=== PATIENT | female | born 1995 | race African-American/Black ===

== ENCOUNTER 2024-07-04 11:07 | Emergency (ER) | payer OTHER, SELFPAY ==
[2024-07-04 11:56] LABS: Absolute Eosinophils 0.3 K/uL (0-0.5); Absolute Lymphocytes (CBC) 1.7 K/uL (0.7-4.9); Absolute Monocytes 0.3 K/uL (0.1-1.3); Basophils % 0.9 % (0-1.3); Eosinophils % 6.3 % (0-4.4); Hemoglobin 14.9 g/dL (12.0-15.0); MCH 32.1 pg (27.0-35.0); MCHC 34.6 g/dL (32.0-36.0); MCV 92.8 fL (80-100); MPV 7.4 fL (7.6-11.3); Neutrophils % 45.8 % (41.7-73.7); Nucleated Red Blood Cells % 0.1 % (0-0); Platelets 264 thou/uL (152-406); RBC Red Blood Cell Count 4.63 M/uL (3.86-4.86); Red Cell Distribution Width 12.7 % (12.1-15.2)
[2024-07-04 11:57] LABS: Specific Gravity 1.017 (1.005-1.030)
[2024-07-04 11:58] LABS: Specific Gravity 1.017 (1.005-1.030); Transitional Epithelial <5 /HPF (None Seen); Urine Bacteria None Seen /HPF (<20); Urine Bilirubin NEGATIVE (Negative); Urine Blood Negative (Negative); Urine Clarity Extremely Turbid (Clear); Urine Color Light-Yellow (Yellow); Urine Culture Reflex Order NOT NEEDED; Urine Glucose NEGATIVE (Negative); Urine Ketones NEGATIVE (Negative); Urine Microscopic Reflex YN ORDER UMIC; Urine Mucus Slight /HPF (None Seen); Urine Nitrite NEGATIVE (Negative); Urine Protein NEGATIVE (Negative); Urine RBC <5 /HPF (None Seen); Urine Urobilinogen Normal (Normal); Urine WBC <5 /HPF (<5); Urine pH 6.5 (5.0-7.0)
[2024-07-04 12:12] LABS: Albumin 3.6 g/dL (3.4-5.0); Alkaline Phosphatase 46 U/L (45-117); Anion Gap 7.9 mEq/L (5.0-15.0); BUN Blood Urea Nitrogen 7 mg/dL (7-18); Bicarbonate 25 mEq/L (21-32); Bilirubin Total 0.6 mg/dL (0.2-1.0); Globulin 3.7 g/dL (2.3-3.5); Glomerular Filtration Rate 77 ml/min (=/>90); Glucose Level 89 mg/dL (74-106); Lipase 25 U/L (13-75); Potassium 3.9 mEq/L (3.5-5.1); Protein, Total 7.3 g/dL (6.4-8.2); Sodium Level 138 mEq/L (136-145)
[2024-07-04 12:13] LABS: ALT/SGPT < 14 U/L (13-56); AST/SGOT < 10 U/L (15-37)
--- NOTE | 2024-07-04 12:45 | RAD REPORT ---
EXAMINATION: CT ABDOMEN AND PELVIS WITH CONTRAST CLINICAL INDICATION: Abd pain;Nausea / vomiting TECHNIQUE: CT abdomen and pelvis was performed, after the administration of IV contrast, as per [facility] protocol. Axial, sagittal and coronal reconstructions were obtained. One or more of the following dose reduction techniques were used: Automated exposure control, adjustment of the mA and k V according to patient size, and iterative reconstruction. Unless otherwise specified, incidental findings do not require dedicated imaging follow-up. COMPARISON: No prior exam. FINDINGS: LOWER CHEST: The visualized lung bases are clear. LIVER: Normal in size and contour. No focal lesion. Grossly unremarkable gallbladder. SPLEEN: Normal size. No focal lesion. PANCREAS: No mass, ductal dilation, or ambrose-pancreatic fluid. ADRENALS: Normal; no mass. KIDNEYS: Normal size and contour. No hydronephrosis. GASTROINTESTINAL TRACT: No evidence of free air, significant intra-abdominal free fluid, bowel obstru ction or abscess. APPENDIX: Normal appendix. LYMPH NODES: No lymphadenopathy. MUSCULOSKELETAL: No acute or suspicious osseous abnormality. ADDITIONAL FINDINGS: Endometrial canal mildly dilated with fluid measuring up to 16 mm. IMPRESSION: Endometrial canal mildly dilated with fluid measuring up to 16 mm, otherwise negative study.
--- NOTE | 2024-07-04 13:57 | EDPHYS ---
Physician Documentation [facility] Name: Avi Moore Age: 29 yrs Sex: Female : 1995 Arrival Date: 07/04/2024 Time: 11:07 Bed DX4 Private MD: ED Physician Joseph Mckeon HPI: 07/04 13:53 This 29 yrs old Black Female presents to ER via Ambulatory with complaints of Abdominal rn Pain, Nausea/Vomiting. 13:53 The patient presents to the emergency department with nausea, vomiting. rn 13:53 Onset: The symptoms/episode began/occurred 2 week(s) ago. Possible causes: unknown. rn Patient reports nausea and vomiting in the mornings for 2 weeks. LMP last month but late this month. Took test at home and was negative. Denies abdominal pain.. 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 - Infectious Disease History:: Denies. - Social history:: Smoking status: Patient denies any tobacco usage or history of. Patient uses street drugs, marijuana. - Family history:: not pertinent. - Hospitalizations: : No recent hospitalization is reported. ROS: 13:53 Constitutional: Negative for fever, chills, and weight loss, Cardiovascular: Negative rn for chest pain Respiratory: Negative for shortness of breath, cough, wheezing, and pleuritic chest pain, Abdomen/GI: Positive for nausea and vomiting MS/Extremity: Negative for injury and deformity, Skin: Negative for injury, rash, and discoloration, Neuro: Negative for headache, weakness, numbness, tingling, and seizure, Exam: 13:53 Constitutional: This is a well developed, well nourished patient who is awake, alert, rn and in no acute distress. Cardiovascular: Regular rate and rhythm. No pulse deficits. Respiratory: No increased work of breathing, no retractions or nasal flaring. Abdomen/GI: Soft, non-tender Vital Signs: 11:26 BP 145 / 95; Pulse 64; Resp 14; Temp 98.6(O); Pulse Ox 100% on R/A; Pain 0/10; ss 11:26 Pain Scale: Adult ss MDM: 11:18 Medical Screening Exam initiated rn 13:53 Differential diagnosis: gastritis, cholecystitis, pancreatitis, appendicitis, rn diverticulitis, viral gastroenteritis, gastroenteritis, Cannabinoid hyperemesis syndrome. Data reviewed: vital signs, nurses notes, lab test result(s), radiologic studies, CT scan, and as a result, I will discharge patient. Counseling: I had a detailed discussion with the patient and/or guardian regarding the historical points, exam findings, and any diagnostic results supporting the discharge/admit diagnosis, lab results, radiology results, the need for outpatient follow up, to return to the emergency department if symptoms worsen or persist or if there are any questions or concerns that arise at home. Special discussion: I discussed with the patient/guardian in detail that at this point there is no indication for admission to the hospital. It is understood, however, that if the symptoms persist or worsen the patient needs to return immediately for re-evaluation. ED course: No acute findings and workup including blood work urine and CT abdomen pelvis. Recommend cessation of marijuana to see if related. Urine test negative here.. 07/04 11:34 Order name: Test, Urine; Complete Time: 12:20 rn 07/04 11:34 Order name: Urinalysis w/ reflexes; Complete Time: 12:20 rn 07/04 11:34 Order name: CBC with Diff; Complete Time: 12:20 rn 07/04 11:34 Order name: CMP; Complete Time: 12:20 rn 07/04 11:34 Order name: Lipase; Complete Time: 12:20 rn 07/04 12:21 Order name: CT Abd/Pelvis - IV Contrast Only; Complete Time: 13:23 rn 07/04 11:34 Order name: IV Saline Lock; Complete Time: 11:51 rn 07/04 11:34 Order name: Labs collected and sent; Complete Time: 11:51 rn Administered Medications: 12:49 Not Given (Patient Refused): ondansetron 4 mg IVP once; over 2 minutes ss Disposition Summary: 07/04/24 13:56 Discharge Ordered Notes: Location: Home rn Problem: an ongoing problem rn Symptoms: have improved rn Condition: Stable rn Diagnosis - Nausea with vomiting, unspecified rn Followup: rn - With: Private Physician - When: As needed - Reason: Recheck today's complaints, Re-evaluation by your physician Discharge Instructions: - Discharge Summary Sheet rn - Nausea and Vomiting, Adult rn Forms: - Medication Reconciliation Form rn - 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
--- NOTE | 2024-07-04 13:57 | ER ---
Nurse's Notes [facility] Name: Avi Moore Age: 29 yrs Sex: Female : 1995 Arrival Date: 07/04/2024 Time: 11:07 Bed DX4 Private MD: Diagnosis: Nausea with vomiting, unspecified Presentation: 07/04 11:26 Chief complaint: Patient states: N/V that began weeks ago with late LMP. Pt states, ss "I've taken a test, but it was normal.". Coronavirus screen: Client denies travel out of the [place] in the last 14 days. Ebola Screen: Patient denies exposure to infectious person. Patient denies travel to an Ebola-affected area in the 21 days before illness onset. Initial Sepsis Screen: Does the patient meet any 2 criteria? No. Patient's initial sepsis screen is negative. Does the patient have a suspected source of infection? No. Patient's initial sepsis screen is negative. Risk Assessment: Do you want to hurt yourself or someone else? Patient reports no desire to harm self or others. Onset of symptoms is unknown. 11:26 Method Of Arrival: Ambulatory ss 11:26 Acuity: JESSICA 3 ss Triage Assessment: 11:27 General: Appears in no apparent distress. comfortable, Behavior is calm, cooperative. ss Respiratory: Airway is patent Respiratory effort is even, unlabored. GI: Reports nausea, vomiting. Derm: Skin is pink, warm \\T\\ dry. normal. 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 - Infectious Disease History:: Denies. - Social history:: Smoking status: Patient denies any tobacco usage or history of. Patient uses street drugs, marijuana. - Family history:: not pertinent. - Hospitalizations: : No recent hospitalization is reported. Screenin:38 Abuse screen: Denies threats or abuse. Denies injuries from another. Nutritional ss screening: No deficits noted. Tuberculosis screening: Never had TB. Assessment: 12:38 Reassessment: Pt back from CT at this time. Vital Signs: 11:26 BP 145 / 95; Pulse 64; Resp 14; Temp 98.6(O); Pulse Ox 100% on R/A; Pain 0/10; ss 11:26 Pain Scale: Adult ss ED Course: 11:11 Patient arrived in ED. cj3 11:18 Joseph Mckeon MD is Attending Physician. rn 11:27 Triage completed. ss 11:27 Arm band placed on right wrist. 11:51 CBC with Diff Sent. bc6 11:51 CMP Sent. bc6 11:51 Lipase Sent. bc6 11:51 Test, Urine Sent. 6 11:51 Urinalysis w/ reflexes Sent. 6 11:51 Initial lab(s) drawn, by nc, sent to lab. Inserted saline lock: 20 gauge in left bc6 antecubital area, using aseptic technique. Blood collected. Flushed with 10 mL NS. 12:36 CT Abd/Pelvis - IV Contrast Only In Process Unspecified. EDMS 12:38 Sharri Traylor, RN is Primary Nurse. ss 12:38 Patient has correct armband on for positive identification. Bed in low position. ss 13:44 IV discontinued, intact, bleeding controlled, No redness/swelling at site. Pressure 6 dressing applied. 14:03 No provider procedures requiring assistance completed. ss Administered Medications: 12:49 Not Given (Patient Refused): ondansetron 4 mg IVP once; over 2 minutes ss Outcome: 13:56 Discharge ordered by . rn 14:03 Discharged to home ambulatory, 14:03 Condition: good 14:03 Discharge instructions given to patient, family, Instructed on discharge instructions, follow up and referral plans. Demonstrated understanding of instructions, follow-up care, 14:03 Patient left the ED. Signatures: Dispatcher [employer] EDMS Joseph Mckeon MD MD rn Blanchard, Shelby, RN RN Josette Vasquez 6 Samantha Israel [id number]
[2024-07-04 14:18] VITALS: BP 145/95; TEMP 98.6; O2SAT 100
== END 2024-07-04 14:03 | disposition home or self-care (01) ==
LOC: ER 11:07
DX: R11.2 Nausea with vomiting, unspecified (principal)
CPT/HCPCS: 85025; 81001; 36415; 81025; 83690; 80053; 74177; 99283; Q9967